=== PATIENT | male | born 2000 | race Two or more races ===

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

== ENCOUNTER 2022-05-07 01:06 | Emergency (ER) | payer MEDICAID ==
[2022-05-07] MEDS ORDERED: Naloxone 2 MG/2 ML Syringe ONE (01:10)
[2022-05-07] MEDS ORDERED: Naloxone 2 MG/2 ML Syringe IVPUSH ONE (01:13)
[2022-05-07] MEDS ORDERED: Sodium Chloride 0.9% 1,000 ML IV ONE (01:38)
[2022-05-07 01:54] LABS: ESTIMATED GFR 89 mL/min (>60)
[2022-05-07 02:55] LABS: CORONAVIRUS COVID-19 NAA NEGATIVE (NEGATIVE)
[2022-05-07] MEDS ORDERED: Potassium Chloride 20 MEQ Tab.ER PO ONE (03:02)
[2022-05-07] MEDS ORDERED: Iopamidol 755 Mg/ML 100 ML Bottle IVPUSH ONE (03:49)
[2022-05-07] MEDS ORDERED: Azithromycin 250 MG Tab PO STA (04:15)
[2022-05-07] MEDS ORDERED: Potassium Chloride 20 MEQ Tab.ER ONE (05:18)
[2022-05-07] MEDS ORDERED: cefTRIAXone 2 GM in Sodium Chloride 0.9% 100 ML IV ONE (07:41)
[2022-05-07] MEDS ORDERED: Dexamethasone 4 MG/ML SDV IVPUSH ONE (08:44)
[2022-05-07] MEDS ORDERED: cefTRIAXone 2 GM Vial ONE (10:19)
== END 2022-05-07 14:50 | disposition home or self-care (01) ==
LOC: JD.ED 01:06
DX: J18.9 Pneumonia, unspecified organism (principal); F17.220 Nicotine dependence, chewing tobacco, uncomplicated; Z20.822 Contact with and (suspected) exposure to COVID-19
CPT/HCPCS: 0241U; 36415; 71045; 71045-26; 71275; 71275-26; 80053; 80306; 80307; 84484; 85007; 85027; 85379; 85610; 85730; 86140; 87040; 96361; 96365; 96375; 99284-25; A9270-GY; J0696; J1100; J2310; J7030